=== PATIENT | female | born 1985 | race Two or more races ===

== ENCOUNTER 2024-09-25 06:33 | Emergency (ER) | payer MEDICAID ==
[~2024-09-25] VITALS: Ht 165.1 cm; Wt 86.0 kg
[2024-09-25 06:34] VITALS: TEMP 98.4
--- NOTE | 2024-09-25 07:16 | Physician Documentation ---
History of Present Illness Chief Complaint: Abdominal Pain Stated Complaint: ABDOMINAL PAIN Time Seen by MD: 07:10 HPI 38-year-old female presenting with abdominal pain that started about 5 hours ago and woke her up from sleep. Patient states that the pain was very sharp and severe at that time but has now eased up. She states that it fluctuates on intensity. Pain is mainly on the right upper area and will radiate up into her chest. She states that she had a little bit of nausea but no vomiting. She had one episode of diarrhea but denies any blood and denies any constipation or any other associated symptoms. Medication Reconciliation Allergies: Coded Allergies: No Known Allergies (Unverified , 09/25/24) Review of Systems All Other Systems at this time: Reviewed and Negative Physical Exam Vital Signs: Temperature: 98.4, Source: Oral, Heart Rate: 84, Respiratory Rate: 16, BP: 113/71, Pulse Oximetry: 99, Weight: 86.000 Oxygen Flow Rate: 0 Physical Exam I have reviewed the triage vitals. CONST: Well developed and well nourished. In no acute distress HENT: Head Atraumatic EYES: Pupils are equal, round and reactive to light. Normal conjunctiva NECK: Normal range of motion. Supple. CARDIO: Normal rate and regular rhythm. No murmurs, rubs, or gallops. S1, S2. PULM/CHEST: No respiratory distress. Lungs clear to auscultation. No wheeze ABD: Soft and nontender. Nondistended. Bowel sounds normal. No guarding. : Exam deferred MSK: No edema. No deformity. NEURO: Alert and oriented to person, place and time. Moving all extremities SKIN: Warm and dry. PSYCH: Normal mood and affect. Good eye contact. Progress Results/Orders Results/Orders Orders - GIULIA LINK MD Urinalysis, Cult If Indicated (09/25/24 06:42) Hcg, Ur Ql (09/25/24 06:42) Cbc/Diff (09/25/24 06:42) BMP (09/25/24 06:42) Lipase (09/25/24 06:42) CMP (09/25/24 06:42) Vital Signs 09/25/24 06:34 Temp 98.4 Pulse 84 Resp 16 B/P (MAP) 113/71 Pulse Ox 99 O2 Flow Rate 0 Medical Decision Making Additional Comments 38-year-old female presenting with nonspecific abdominal pain. Above differential diagnosis was considered. Lab workup is unremarkable. CT of the abdomen and pelvis also unremarkable. Patient's exam is relatively benign. She was given a GI cocktail which fully resolved her symptoms. I suspect that her pain may have been due to some dyspepsia and indigestion. It appears that this may be likely given the improvement with the GI cocktail. I advised the patient to take some Pepcid [id number] for several days and monitor symptoms for any recurrence. Follow up with PCP and return to the ED as needed. Departure Disposition: HOME / SELF CARE / HOMELESS Impression: Primary Impression: Abdominal pain Additional Impression: Acute gastritis Condition: Improved Discharge Instructions: Abdominal Pain, Adult Additional Instructions: Take Pepcid 20 mg [id number] daily. Monitor symptoms for any recurrence. Follow up with PCP in the next 2-5 days. Return to the ED with any acutely wors ening symptoms. Referrals: NO PRIMARY CARE PROVIDER (PCP) Signature Scribe Signature: 1 Attestation: 1 GIULIA LINK MD September 25, 2024 07:16
[2024-09-25 07:49] LABS: BASOPHILS % (AUTO) 0.6 % (0-1); EOSINOPHILS % (AUTO) 0.3 % (0-6); HEMATOCRIT 39.6 % (35.0-45.0); HEMOGLOBIN 13.2 g/dl (12.0-16.0); LYMPHOCYTES # (AUTO) 0.8 X10'3 (1.1-4.8); LYMPHOCYTES % (AUTO) 9.6 % (21-51); MEAN CORPUSCULAR HEMOGLOBIN 29.8 PG (27.0-31.0); MEAN CORPUSCULAR HGB CONC 33.3 g/dL (33.0-36.5); MEAN CORPUSCULAR VOLUME 89.5 FL (78-98); MEAN PLATELET VOLUME 8.1 FL (7.4-10.4); MONOCYTES # (AUTO) 0.4 X10'3 (0-0.9); MONOCYTES % (AUTO) 4.4 % (2-12); NEUTROPHILS # (AUTO) 7.2 X10'3 (1.8-7.7); NEUTROPHILS % (AUTO) 85.1 % (42-75); PLATELET COUNT 311 X10'3 (140-440); RED BLOOD COUNT 4.42 X10'6 (4.20-5.60); RED CELL DISTRIBUTION WIDTH 12.9 % (11.5-14.5); WHITE BLOOD COUNT 8.4 X10'3 (4.5-11.0)
[2024-09-25 07:59] LABS: BILIRUBIN,URINE NEGATIVE (Neg); CLARITY,URINE CLOUDY (Clear); COLOR,URINE YELLOW (Yellow); GLUCOSE, URINE NEGATIVE (Neg); KETONES,URINE NEGATIVE (Neg); LEUKOCYTE ESTERASE ,URINE NEGATIVE (Neg); NITRITES, URINE NEGATIVE (Neg); OCCULT BLOOD,URINE NEGATIVE (Neg); PROTEIN,URINE NEGATIVE (Neg); UROBILINOGEN,URINE 0.2 E.U/dL (0.2-1.0)
[2024-09-25 08:12] LABS: UA COLLECTION TYPE NON-SPECIFIED
[2024-09-25 08:13] LABS: AMORPHOUS PHOSPHATES 4+; BACTERIA,URINE FEW /HPF (Neg); RBC,URINE 0-2 /HPF (0-2); SQUAMOUS EPITHELIAL CELL,UR FEW /LPF (FEW); URINE HCG NEGATIVE (NEG); WBC,URINE 0-4 /HPF (0-4)
[2024-09-25 08:19] LABS: ALANINE AMINOTRANSFERASE 22 U/L (12-78); ALBUMIN 4.1 G/DL (3.4-5.0); ALBUMIN/GLOBULIN RATIO 1.1 (1.1-1.5); ALKALINE PHOSPHATASE 68 IU/L (46-116); ANION GAP 7 (8-16); ASPARTATE AMINO TRANSFERASE 15 U/L (10-37); BILIRUBIN,TOTAL 0.4 MG/DL (0.1-1.0); BLOOD UREA NITROGEN 11 MG/DL (7-18); BUN/CREATININE RATIO 15.3 (10.0-20.0); CALCIUM 10.5 MG/DL (8.5-10.1); CHLORIDE 103 MMOL/L (99-107); CREATININE 0.72 MG/DL (0.40-0.90); GLUCOSE 102 MG/DL (70-104); LIPASE 30 U/L (16-77); POTASSIUM 4.5 MMOL/L (3.5-5.1); SODIUM 137 MMOL/L (135-145); TOTAL CARBON DIOXIDE 27.1 MMOL/L (24-32); eCRCL 94 ML/MIN; eGFR 90 ML/MIN
--- NOTE | 2024-09-25 09:58 | RADIOLOGY REPORT ---
CT CT ABDOMEN PELVIS INDICATION: abdominal pain EXAM DATE: 09/25/2024 08:45 AM COMPARISON: None RADIATION DOSE: CTDIvol: 23 mGy, DLP: 1314 mGy*cm PROCEDURE: Helical CT images were obtained of the abdomen and pelvis without IV contrast Sagittal and coronal reconstructions are provided. ORAL CONTRAST: None. ADDITIONAL IMAGES / REFORMATS: None All C T scans at this medical facility are performed using dose modulation techniques as appropriate to a p erformed exam including the following: Automated exposure control was utilized; adjustment of the MA and/or KV according to patient size; and use of iterative reconstruction technique. FINDINGS: LUNG BASE: Normal. LIVER: Normal. GALLBLADDER AND BILIARY TREE: No calcified gallstones. Normal caliber wall. No intra- or extrahepatic biliary ductal dilation. PANCREAS: Normal. SPLEEN: Normal. BOWEL: Normal. Normal appendix. ADRENALS: Normal. KIDNEYS AND URETER: Normal. BLADDER: Normal. REPRODUCTIVE ORGANS: 3.1 cm left ovarian cystic lesion. LYMPH NODES:No lymphadenopathy. PERITONEUM: No ascites or free air. No other fluid collection. VESSELS: Scattered atherosclerotic calcifications are noted. RETROPERITONEUM: Normal. ABDOMINAL WALL: Normal. BONES: Scattered osseous degenerative changes are noted. IMPRESSION: No acute intraabdominal abnormality.
[2024-09-25 10:18] VITALS: BP 104/69; PULSE 73; RESP 17; O2SAT 100
[2024-09-25] MEDS: mag hydrox/Alum hydrox/simeth 30ml oral suspension PO ONE (10:38)
[2024-09-25] MEDS: LIDOcaine 2% Viscous 15ml cup MM ONE (10:38)
== END 2024-09-25 11:07 | disposition home or self-care (01) ==
LOC: ER 06:34 → EDBD 06:34 → ER 11:07
DX: K29.00 Acute gastritis without bleeding (principal)
CPT/HCPCS: 36415; 74176; 80053; 81001; 81025; 83690; 85025; 99284